=== PATIENT | male | born 1975 | race Asian ===

== ENCOUNTER 2016-12-09 14:33 | Observation (INO) | payer OTHER ==
--- NOTE | 2016-12-09 14:40 | CPEKG ---
Heart Rate: 68 RR Interval: 882 P-R Interval: 176 QRSD Interval: 96 QT Interval: 420 QTC Interval: 447 P [place]: 35 QRS [place]: -23 T Wave [place]: 7 EKG Severity - OTHERWISE NORMAL ECG - EKG Impression: SINUS RHYTHM EKG Impression: ATRIAL PREMATURE COMPLEX EKG Impression: BORDERLINE LEFT AXIS DEVIATION EKG Impression: Agree with above. Some artifact. Luke Hickman M.D. Electronically Signed By: Luke Hickman 10-Dec-2016 11:08:23
[2016-12-09] MEDS ORDERED: ASPIRIN 81 MG CHEWABLE TAB PO ONE (14:44)
[2016-12-09] MEDS ORDERED: NS 1,000 ML IV ONE (14:44)
--- NOTE | 2016-12-09 14:48 | EDPHY ---
H & P Time Seen by Provider: 12/09/16 14:36 HPI/ROS: CHIEF COMPLAINT: Palpitations HISTORY OF PRESENT ILLNESS: The patient is a 41-year-old man who comes to the emergency department complaining of palpitations last four hours. He is visiting from [place]. He states that he has had PVCs that he can feel most of his life and was told that there benign. He states that this feels different. He has having PACs for EMS and here on the monitor that do seem to correlate with his palpitations. He also complains of a warm sensation like he is going to fall asleep. He states that he was admitted the hospital in [place] in September of this year for similar symptoms and a bumped troponin. He had a cardiac catheterization that he reports was negative and he was ultimately diagnosed with myocarditis. He did not have fever at that time. He is unsure whether not he has worked up for PE. He denies leg pain or swelling. No nausea vomiting. No diaphoresis. History of high blood pressure. No high cholesterol. No smoking. No family history. He does feel slightly lightheaded when he stands up. REVIEW OF SYSTEMS: Constitutional: denies: chills, fever, recent illness, recent injury EENTM: denies: blurred vision, double vision, nose congestion Respiratory: denies: cough, shortness of breath Cardiac: See HPI Gastrointestinal/Abdominal: denies: abdominal pain, diarrhea, nausea, vomiting, blood streaked stools Genitourinary: denies: dysuria, frequency, hematuria, pain Musculoskeletal: denies: joint pain, muscle pain Skin: denies: lesions, rash, jaundice, bruising Neurological: denies: headache, numbness, paresthesia, tingling, dizziness, weakness Hematologic/Lymphatic: denies: blood clots, easy bleeding, easy bruising Immunologic/allergic: denies: HIV/AIDS, transplant EXAM: GENERAL: Well-appearing, well-nourished and in no acute distress. HEAD: Atraumatic, normocephalic. EYES: Pupils equal round and reactive to light, extraocular movements intact, sclera anicteric, conjunctiva are normal. ENT: TMs normal, nares patent, oropharynx clear without exudates. Moist mucous membranes. NECK: Normal range of motion, supple without lymphadenopathy or JVD. LUNGS: Breath sounds clear to auscultation bilaterally and equal. No wheezes rales or rhonchi. HEART: Regular rate and rhythm without murmurs, rubs or gallops. ABDOMEN: Soft, nontender, normoactive bowel sounds. No guarding, no rebound. No masses appreciated. BACK: No CVA tenderness, no spinal tenderness, step-offs or deformities EXTREMITIES: Normal range of motion, no pitting or edema. No clubbing or cyanosis. NEUROLOGICAL: Cranial nerves II through XII grossly intact. Normal speech, normal gait. 5/5 strength, normal movement in all extremities, normal sensation PSYCH: Normal mood, normal affect. SKIN: Warm, dry, normal turgor, no visible rashes or lesions. Source: Patient Exam Limitations: No limitations - Medical/Surgical History Hx Asthma: No Hx Chronic Respiratory Disease: No Hx Diabetes: No Hx Renal Disease: No Hx Cirrhosis: No Hx Alcoholism: No Hx HIV/AIDS: No Other PMH: Myocarditis - Family History Significant Family History: No pertinent family hx - Social History Smoking Status: Never smoked Alcohol Use: Sober Drug Use: None Constitutional: Initial Vital Signs Temperature (C) 37.1 C 12/09/16 14:40 Heart Rate 72 12/09/16 14:40 Respiratory Rate 18 12/09/16 14:40 Blood Pressure 172/116 H 12/09/16 14:40 O2 Sat (%) 98 12/09/16 14:40 O2 Delivery Mode Room Air Allergies/Adverse Reactions: No Known Allergies Allergy (Unverified 12/09/16 14:45) Home Medications: Medication Instructions Recorded Codeine Cough Syrup 5 - 10 ml PO Q6 PRN 12/09/16 Multivitamins [Multivitamin (*)] 1 each PO HS 12/09/16 [place]-3 Fatty Acids/Fish Oil 2 each PO HS 12/09/16 [[place] 3 1,000 mg Softgel] Perindopril Erbumine 4 mg PO DAILY 12/09/16 Medical Decision Making - Diagnostics EKG Interpretation: An EKG obtained and was read and documented in trace view. Please see trace view for full reading and report. Sinus rhythm, Pac, no acute ischemic changes Imaging Results: Imaging Impressions Chest X-Ray 12/09/16 14:44 Impression: Possible cardiomegaly. Recommend routine PA and lateral chest when the patient is clinically able, to better evaluate the cardiothoracic equilibrium. ED Course/Re-evaluation: Patient received echocardiogram in the ER considering his history of myocarditis and elevated troponins. It was read as negative by Dr. Malagon. 3:30 p.m. we discussed the test results and I recommended admission. I discussed the case with Dr. Heart who will admit. I have paged Cardiology. 4 p.m. I discussed the case with Cardiology Dr. Marquez who will consult. Differential Diagnosis: Partial list of the Differential diagnosis considered include but were not limited to; the acute coronary disease, myocarditis, PE and although unlikely based on the history and physical exam, I also considered dissection, pneumonia , aneurysm, takotsubos. - Data Points Laboratory Results: Laboratory Results 12/09/16 14:35 12/09/16 14:35 12/09/16 12/09/16 12/09/16 14:35 14:35 14:35 WBC 8.45 10^3/uL 10^3/uL (3.80-9.50) RBC 5.24 10^6/uL 10^6/uL (4.40-6.38) Hgb 15.9 g/dL g/dL (13.7-17.5) Hct 43.7 % % (40.0-51.0) MCV 83.4 fL fL (81.5-99.8) MCH 30.3 pg pg (27.9-34.1) MCHC 36.4 g/dL g/dL (32.4-36.7) RDW 13.6 % % (11.5-15.2) Plt Count 245 10^3/uL 10^3/uL (150-400) MPV 9.8 fL fL (8.7-11.7) Neut % (Auto) 69.2 % % (39.3-74.2) Lymph % (Auto) 22.4 % % (15.0-45.0) [place] % (Auto) 6.5 % % (4.5-13.0) Eos % (Auto) 1.1 % % (0.6-7.6) Baso % (Auto) 0.4 % % (0.3-1.7) Nucleat RBC Rel Count 0.0 % % (0.0-0.2) Absolute Neuts (auto) 5.86 10^3/uL 10^3/uL (1.70-6.50) Absolute Lymphs (auto) 1.89 10^3/uL 10^3/uL (1.00-3.00) Absolute Monos (auto) 0.55 10^3/uL 10^3/uL (0.30-0.80) Absolute Eos (auto) 0.09 10^3/uL 10^3/uL (0.03-0.40) Absolute Basos (auto) 0.03 10^3/uL 10^3/uL (0.02-0.10) Absolute Nucleated RBC 0.00 10^3/uL 10^3/uL (0-0.01) Immature Gran % 0.4 % % (0.0-1.1) Immature Gran # 0.03 10^3/uL 10^3/uL (0.00-0.10) PT 12.0 SEC SEC (12.0-15.0) INR 0.90 (0.83-1.16) APTT 30.2 SEC SEC (23.0-38.0) D-Dimer 0.27 ug/mLFEU ug/mLFEU (0.00-0.50) Sodium 140 mEq/L mEq/L (134-144) Potassium 4.0 mEq/L mEq/L (3.5-5.2) Chloride 102 mEq/L mEq/L (97-110) Carbon Dioxide 24 mEq/l mEq/l (22-31) Anion Gap 14 mEq/L mEq/L (8-16) BUN 12 mg/dL mg/dL (7-23) Creatinine 1.0 mg/dL mg/dL (0.7-1.3) Estimated GFR > 60 Glucose 98 mg/dL mg/dL (70-100) Calcium 9.8 mg/dL mg/dL (8.5-10.4) Total Bilirubin 0.5 mg/dL mg/dL (0.1-1.4) Conjugated Bilirubin 0.2 mg/dL mg/dL (0.0-0.5) Unconjugated Bilirubin 0.3 mg/dL mg/dL (0.0-1.1) AST 65 IU/L H IU/L (17-59) ALT 104 IU/L H IU/L (21-72) Alkaline Phosphatase 93 IU/L IU/L (38-126) Troponin I 0.055 ng/mL H ng/mL (0.000-0.034) Total Protein 7.4 g/dL g/dL (6.3-8.2) Albumin 4.6 g/dL g/dL (3.5-5.0) Lipase 53 IU/L IU/L (23-300) Medications Given: Discontinued Medications Aspirin (Aspirin) 324 mg PO EDNOW ONE Stop: 12/09/16 14:45 Last Admin: 12/09/16 14:59 Dose: 324 mg Sodium Chloride (Ns) 1,000 mls @ 0 mls/hr IV EDNOW ONE; Wide Open PRN Reason: Protocol Stop: 12/09/16 14:45 Last Admin: 12/09/16 14:59 Dose: 1,000 mls Metoprolol Tartrate (Lopressor Injection) 5 mg IVP Q5M [facility] Stop: 12/09/16 15:56 Last Admin: 12/09/16 15:51 Dose: 5 mg Departure - Departure Disposition: [facility] Inpatient Acute Clinical Impression: Chest pain Qualifiers: Chest pain type: unspecified Qualified Code(s): R07.9 - Chest pain, unspecified Condition: Fair
[2016-12-09 14:54] LABS: % IMMATURE GRANULYOCYTES 0.4 % (0.0-1.1); ABSOLUTE IMMATURE GRANULOCYTES 0.03 10^3/uL (0.00-0.10); ADD DIFF? NO; ADD MORPH? NO; ADD SCAN? NO; ATYPICAL LYMPHOCYTE FLAG 0 (0-99); FRAGMENT RBC FLAG 0 (0-99); HEMATOCRIT 43.7 % (40.0-51.0); HEMOGLOBIN 15.9 g/dL (13.7-17.5); LEFT SHIFT FLG 0 (0-99); LIPEMIA HEMOLYSIS FLAG 90 (0-99); MEAN CELL HEMOGLOBIN 30.3 pg (27.9-34.1); MEAN CELL HEMOGLOBIN CONCENTR. 36.4 g/dL (32.4-36.7); MEAN CELL VOLUME 83.4 fL (81.5-99.8); MEAN PLATELET VOLUME 9.8 fL (8.7-11.7); PLATELET CLUMPS FLAG 0 (0-99); PLATELET COUNT 245 10^3/uL (150-400); RED BLOOD CELL COUNT 5.24 10^6/uL (4.40-6.38); RED CELL DISTRIBUTION WIDTH 13.6 % (11.5-15.2)
[2016-12-09 15:02] LABS: ALANINE AMINOTRANSFERASE 104 IU/L (21-72); ALBUMIN 4.6 g/dL (3.5-5.0); ALKALINE PHOSPHATASE 93 IU/L (38-126); ANION GAP 14 mEq/L (8-16); APTT 30.2 SEC (23.0-38.0); ASPARTATE AMINOTRANSFERASE 65 IU/L (17-59); BILIRUBIN,TOTAL 0.5 mg/dL (0.1-1.4); BILIRUBIN-CONJUGATED 0.2 mg/dL (0.0-0.5); BILIRUBIN-UNCONJUGATED 0.3 mg/dL (0.0-1.1); CALCIUM 9.8 mg/dL (8.5-10.4); CARBON DIOXIDE 24 mEq/l (22-31); CHLORIDE 102 mEq/L (97-110); GLOMERULAR FILTRATION RATE > 60; GLUCOSE 98 mg/dL (70-100); INR 0.9 (0.83-1.16); SODIUM 140 mEq/L (134-144); TOTAL PROTEIN 7.4 g/dL (6.3-8.2)
[2016-12-09 15:14] LABS: TROPONIN I 0.055 ng/mL (0.000-0.034)
[2016-12-09] MEDS: METOPROLOL TARTRATE 5 MG/5 ML INJ IVP SCH ×2 (15:51→17:21)
--- NOTE | 2016-12-09 17:10 | ECHO ---
[email or web address] [address] Main: [phone] Fax: [email or web address] Echocardiogram Name: PAULINE WILKINS MR#: [id number] Study Date: 12/09/2016 Study Time: 03:06 PM Date of : 1975 Age: 41 year(s) Height: 170.2 cm (67 in.) Weight: 92.99 kg (205 lb.) BSA: 2.04 m2 Gender: Male Examination: Echo Indication: Chest Pain, History of myocarditis Image Quality: Contrast: Requested by: Floyd Davis BP: 167 mmHg/95 mmHg Heart Rate: Rhythm: Indication: Chest Pain, History of myocarditis Procedure Staff Manager Massage Department: Veronika Agosto Physician: Ehsan Marquez Requesting Provider: Conclusions: Normal size left ventricle. EF is 67 %. No regional wall motion abnormality. Normal diastolic LV function. Trivial mitral valve regurgitation. Trivial aortic valve regurgitation. Trivial tricuspid valve regurgitation. Measurements: Chambers Valvular Assessment AV/MV Valvular Assessment TV/PV Normal Normal Normal Name Value Range Name Value Range Name Value Range Ao Radha (MM): 3.7 cm (2.2 cm-3.7 AV Vmax: 1.23 m/s (1 m/s-1.7 TR Vmax: 2.36 mm/s ( - ) cm) m/s) TR PGmax: 22 mmHg ( - ) IVSd (2D): 1.2 cm (0.6 cm-1.1 AV maxP mmHg ( - ) syst. PAP: 27 mmHg ( - ) cm) AV meanP mmHg ( - ) LVDd (2D): 5.2 cm (4.2 cm-5.9 MV E Vmax: 0.74 m/s ( - ) cm) MV A Vmax: 0.58 m/s ( - ) LVDs (2D): 3.4 cm (2.1 cm-4 MV E/A: 1.28 ( - ) cm) LVPWd (2D): 0.9 cm (0.6 cm-1 cm) LVEF (MOD4): 67 % (>=55 %) Continued Measurements: Chambers Valvular Assessment AV/MV Valvular Assessment TV/PV Name Value Name Value Name Value LADs: 4.3 cm MV E/E' Septal: 10.50 CVP (est.): 5 mmHg LADs Lon.9 cm MV E/E' Lateral: 5.60 Patient: PAULINE WILKINS Study Date: 12/09/2016 Page 1 of 2 03:06 PM LA Area: 23.9 cm2 Findings: Left Ventricle: Normal size left ventricle. No LV hypertrophy. Normal global systolic LV function. EF is 67 %. No regional wall motion abnormality. Normal diastolic LV function. Right Ventricle: Normal size right ventricle. Left Atrium: The left atirum is borderline dilated. Right Atrium: The right atrium is normal in size. Mitral Valve: The mitral valve is normal in appearance. Trivial mitral valve regurgitation. Aortic Valve: The aortic valve is normal in appearance and function. Trivial aortic valve regurgitation. Tricuspid Valve: The tricuspid valve is normal in appearance and function. Trivial tricuspid valve regurgitation. Pulmonic Valve: The pulmonic valve is normal in appearance and function. Trivial pulmonic valve regurgitation. Aorta: The aorta is normal. Pericardium: No pericardial effusion. (No Signature Object) Patient: PAULINE WILKINS Study Date: 12/09/2016 Page 2 of 2 03:06 PM [id number]
[2016-12-09] MEDS ORDERED: ONDANSETRON DISINTEGRATING 4 MG TAB PO PRN (18:32)
[2016-12-09] MEDS ORDERED: ONDANSETRON 4 MG/2 ML VIAL IVP PRN (18:32)
[2016-12-09] MEDS ORDERED: ACETAMINOPHEN 325 MG TAB PO PRN (18:32)
[2016-12-09 18:51] LABS: HEMATOCRIT 42.1 % (40.0-51.0)
[2016-12-09] MEDS ORDERED: guaiFENesin/CODEINE PHOS 10 ML UDCUP PO PRN (19:00)
[2016-12-09 19:08] LABS: C-REACTIVE PROTEIN < 5.0 mg/L (<10.0)
[2016-12-09 19:17] LABS: TROPONIN I 0.059 ng/mL (0.000-0.034)
[2016-12-09] MEDS ORDERED: MULTIVITAMINS 1 EACH TAB PO SCH (21:00)
[2016-12-09] MEDS ORDERED: OMEGA-3 FATTY ACIDS 1,000 MG CAP PO SCH (21:00)
--- NOTE | 2016-12-09 21:40 | GHP ---
[f rep st] HISTORY AND PHYSICAL DATE OF ADMISSION: 12/09/2016 This patient is a 41-year-old gentleman with minimal past medical history, other than palpitations, w alex presented with presyncope from [facility]. He has been in the [place] for a couple of weeks traveling. He works for [employer], and he had lunch with colleagues today. He had a light lunch, an d during that, he began to feel presyncopal and warm and flushed. He felt sleepy. He began to walk to his car, and he stumbled. He was also having frequent palpitations a couple of times a minute. U ltimately, he decided to seek care. He did not have chest pain or angina. He has a history of having previous palpitations, and was seen in the hospital in [place], where he h ad a troponin of 1.5. He underwent angiogram and a number of other tests, all of which were reported ly normal. He does not have exertional symptoms. 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 He is able to do a lo t of hiking here in [place] and [place] without anginal symptoms. He does not use stimulant drugs, ashley e cocaine, drink excessive caffeine, smoke cigarettes, or drink any more than minimal alcohol. He do es not take stimulant drugs. He had an uncle who of a heart attack, but otherwise no previous. He had a cold in October, and has a persistent cough, although following that September admission to [facility], he was also started on an DARRELL inhibitor. He has not had fever, chills, or jaundice. He does not take any supplements, and takes very few medications, other than an DARRELL inhibitor. In the emergency department, he was found to have an indeterminate troponin and palpitations that wer e relieved with on administration of IV metoprolol. He denies a history of tachyarrhythmias or fast palpitations. He did not have other episodes of sync ope. No fever, chills. REVIEW OF SYSTEMS: Complete 10-point review of systems conducted. Negative, except as noted in the HPI. PAST MEDICAL HISTORY: 1. Palpitations. 2. Positive troponin, diagnosed as myocarditis, as detailed in the HPI. 3. Hypertension. ALLERGIES: No known drug allergies. HOME MEDICATIONS: Codeine cough syrup, multivitamin, fish oil, and perindopril, which is an DARRELL inhi bitor. SOCIAL HISTORY: As in the HPI. FAMILY HISTORY: As in the HPI. PHYSICAL EXAMINATION: PRESENTING VITAL SIGNS: Temp 37.1, blood pressure 172/116, now 151/88, pulse in the 70s, breathing 18 times a minute, 98% on room air. GENERAL: No acute distress. HEENT: Scle paresh anicteric. Oropharynx clear. Mucous membranes are moist. NECK: Supple without lymphadenopathy or JVD. LUNGS: Clear to auscultation bilaterally. HEART: S1, S2. ABDOMEN: Soft, nontender, non distended. LOWER EXTREMITIES: Without edema. Calves are nontender. SKIN: Without rash. NEUROLOG IC: Exam is nonfocal. LABORATORY: Sodium 140, potassium 4.0, chloride 102, bicarb 24, BUN 12, creatinine 1.0, glucose 98. LFTs: Bilirubin is normal. AST is 65, ALT is 104, alk phosphatase is 93, troponin is 0.055. A rep eat troponin is 0.059. CRP is undetectable. BNP is 86. Albumin and lipase are normal. D-dimer is normal. Coags normal. Hepatitis serologies are pending. White count 8, hematocrit 43, platelets ar e 245,000. EKG, interpreted by me, shows sinus at 68 with normal axis and intervals. No ST or T-wave changes. There is no injury pattern. Echocardiogram shows normal LV size and function. Normal right-sided pressures. Normal valves. Ess entially an unremarkable echo. I discussed the case with Dr. Floyd Davis. ASSESSMENT AND PLAN: A 41-year-old gentleman presents with palpitations, presyncope, and indetermina te troponin. 1. Presyncope. This sounds an awfully lot like vagal. There is no clear trigger, as he had a light lunch, he did not describe it as a stressful affair, but certainly it sounds like a vagal with a war m feeling and a flush and some sleepiness, and a long interval between feeling like he was going to p ass out and the onset of symptoms. We will follow on telemetry. He has a normal echo. 2. Indeterminate troponin. The cause of this is uncertain. The patient has a normal echo. He does not have an injury pattern. It is possibly a viral syndrome; although he does not have viral sympto ms at this time, he had them recently. Will follow. Cardiology will see him in the morning. It is worth noting that they are flat; there is another coming in the morning. 3. Palpitations. I suspect these are just premature ventricular contractions. In the ER, they note d his symptoms of premature ventricular contractions corresponded with the monitor that resolved with the beta laura. The patient may be a candidate for outpatient beta laura therapy. I have held them at night in case the patient is having a tachyarrhythmia we are not seeing, in which case would be nice to unmask that. 4. A cough. I suspect he may have a cough secondary to angiotensin converting enzyme inhibitor. It may be worth stopping this and see what happens. It is notable that the patient typically has a cou gh for weeks following a viral syndrome, and did have something about a month ago. 5. Disposition: Observation status. 6. Prophylaxis: Low-risk sequential compression devices and ambulation. /[id number]/MODL
[2016-12-10] MEDS ORDERED: PERINDOPRIL ERBUMINE 4 MG PO SCH (09:00)
--- NOTE | 2016-12-10 12:47 | HOSPPROG ---
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 w/u reveals indeterminate troponin (0.059 - 0.07), EKG unremarkable, telemetry unremarkable, TTE unremarkable, no chest pain or SOB. Cards consult pending. He has a hx of being admitted to a hospital in [place] w/i the last year for abd pain. A troponin was above 1 and he had a Cath performed which was unremarkable. Since then, he has had a normal troponin at recheck. Yesterday his near syncopal episode occurred shortly after hearing some stressful news that his grand mother has been made DNR. History appears to indicated likely vasovagal. Since his hospitalization in [place], he has been started on on DARRELL-I and has developed a cough. This was stopped yesterday. He has also lost about 25 lbs and this has been voluntary as he has been exercising and dieting. #Near syncope #Indeterminate troponin #cough, possible due to DARRELL-I #HTN, not hypertensive here. #palpitations, none currently Plan: -Cards consult -Hold DARRELL-I, likely does not need given loss of weight, and current BP ok -SCD's -Full code Subjective: Feels back to baseline. NO CP or SOB. Troponin continues to be at inteterminate range. Objective: Vital Signs Temp Pulse Resp BP Pulse Ox 36.4 C 58 L 19 127/83 H 97 12/10/16 08:38 12/10/16 08:38 12/10/16 08:38 12/10/16 08:38 12/10/16 08:38 Laboratory Results 12/09/16 18:40 12/09/16 12/10/16 12/11/16 05:59 05:59 05:59 Intake Total 1500 Balance 1500 PT 12.0 SEC (12.0-15.0) 12/09/16 14:35 INR 0.90 (0.83-1.16) 12/09/16 14:35 - Physical Exam Constitutional: no apparent distress Eyes: PERRL, EOMI Ears, Nose, Mouth, Throat: moist mucous membranes, hearing normal Cardiovascular: regular rate and rhythym Respiratory: no respiratory distress, no rales or rhonchi, clear to auscultation Gastrointestinal: normoactive bowel sounds, soft, non-tender abdomen Skin: warm Neurologic: AAOx3 Psychiatric: interacting appropriately, not anxious, not encephalopathic ICD10 Worksheet Patient Problems: Problems Problem Status Onset Chest pain Acute
[2016-12-10 12:51] VITALS: BP 141/73; PULSE 68; RESP 16; TEMP 98.1; O2SAT 94
--- NOTE | 2016-12-10 15:14 | PDCARCONS ---
Cardiology Consult Reason for Consult: palpitations Chief Complaint: palpitations and near syncope Requesting Physician: ER/Hospitalist crew History of Present Illness: Patient is a 41 y/o male with relatively unremarkable past medical/ cardiovascular history (no CAD, HTN, HLP, or DM), who presented to [facility] ER via EMS after an episode of palpitations with associated with near syncope. No complaints of chest pains, but mild chest pressure/tightness was noted. No erasmo dizziness was noted, but the patient felt like he was going to faint. No PND or orthopnea. Recent eleven mile hike without any limitations appreciated. There has been a moderate degree of stress - there was a stressful phone call just prior to the events that were noted (and led to the EMS call), and there is also some degree of stress associated with the current job/work. The latter did not appear to be a great deal of stress over and above "normal" for the patient. Ongoing very good PO intake of fluids. In speaking with the patient, there was an event that occurred back at home in [place] with a full cardiovascular work up (echo and angiography sound like they were performed based on the patient's descriptions and awareness of the work up performed). No erasmo pathology was noted with this work up. Peak troponin with the admission ([place] admission) were about 1.5 ng/mL. Mild troponin elevation was also noted with this admission (peak to 0.077 ng/mL, with ongoing subtle elevation noted). Patient reports that he is feeling very well today. was present with the patient in the room today. One complaints that was voiced by both patient and is a dry, non productive cough, that has been noted since ACEi therapy was started at the time of discharge from [facility]. History Information - Allergies/Home Medication List Allergies/Adverse Reactions: No Known Allergies Allergy (Unverified 12/09/16 14:45) Home Medications: Codeine Cough Syrup 5 - 10 ml PO Q6 PRN 12/09/16 [Last Taken 12/08/16 20:00] Multivitamins [Multivitamin (*)] 1 each PO HS 12/09/16 [Last Taken 12/08/16 22: 00] Rutledge-3 Fatty Acids/Fish Oil [Rutledge 3 1,000 mg Softgel] 2 each PO HS 12/09/16 [ Last Taken 12/08/16 22:00] Perindopril Erbumine 4 mg PO DAILY 12/09/16 [Last Taken 12/09/16 08:00] I have personally reviewed and updated: family history, medical history, social history, surgical history Past Medical History: - Past Medical History no pertinent PMH, hypertension - Surgical History Reports: no pertinent surgical hx - Family History Positive for: non-pertinent - Social History Smoking Status: Never smoked Alcohol Use: Sober Drug Use: None Cardiac History - Cardiac History Cardiac Risk Factors: hypertension (>140/90), male Timing/Duration: Weeks Severity: moderate Severity Scale: 5 Activities at Onset: activity Modifying Factors: improves with: lying down, rest Associated Symptoms: syncope, weakness Physical Exam Physical Exam: Temp Pulse Resp BP Pulse Ox 36.7 C 68 16 141/73 H 94 12/10/16 12:48 12/10/16 12:48 12/10/16 12:48 12/10/16 12:48 12/10/16 12:48 O2 (L/minute) 2 Constitutional: no apparent distress, appears nourished, not in pain Eyes: PERRL Ears, Nose, Mouth, Throat: moist mucous membranes, hearing normal, ears appear normal Cardiovascular: regular rate and rhythym, no murmur, rub, or gallop, No JVD Peripheral Pulses: 2+: dorsalis-pedis (R), dorsalis-pedis (L) Respiratory: no respiratory distress, no rales or rhonchi, clear to auscultation Gastrointestinal: normoactive bowel sounds, soft, non-tender abdomen Skin: warm, normal color, no rashes or abrasions Musculoskeletal: full muscle strength Neurologic: AAOx3, sensation intact bilaterally, CN II-XII Intact Psychiatric: interacting appropriately, not anxious, not encephalopathic Lab and Imaging 12/09/16 18:40 12/09/16 14:35 WBC 8.45 10^3/uL (3.80-9.50) 12/09/16 14:35 RBC 5.24 10^6/uL (4.40-6.38) 12/09/16 14:35 Hgb 15.9 g/dL (13.7-17.5) 12/09/16 14:35 Hct 42.1 % (40.0-51.0) 12/09/16 18:40 MCV 83.4 fL (81.5-99.8) 12/09/16 14:35 MCH 30.3 pg (27.9-34.1) 12/09/16 14:35 MCHC 36.4 g/dL (32.4-36.7) 12/09/16 14:35 RDW 13.6 % (11.5-15.2) 12/09/16 14:35 Plt Count 245 10^3/uL (150-400) 12/09/16 14:35 MPV 9.8 fL (8.7-11.7) 12/09/16 14:35 Neut % (Auto) 69.2 % (39.3-74.2) 12/09/16 14:35 Lymph % (Auto) 22.4 % (15.0-45.0) 12/09/16 14:35 Mckenzie % (Auto) 6.5 % (4.5-13.0) 12/09/16 14:35 Eos % (Auto) 1.1 % (0.6-7.6) 12/09/16 14:35 Baso % (Auto) 0.4 % (0.3-1.7) 12/09/16 14:35 Nucleat RBC Rel Count 0.0 % (0.0-0.2) 12/09/16 14:35 Absolute Neuts (auto) 5.86 10^3/uL (1.70-6.50) 12/09/16 14:35 Absolute Lymphs (auto) 1.89 10^3/uL (1.00-3.00) 12/09/16 14:35 Absolute Monos (auto) 0.55 10^3/uL (0.30-0.80) 12/09/16 14:35 Absolute Eos (auto) 0.09 10^3/uL (0.03-0.40) 12/09/16 14:35 Absolute Basos (auto) 0.03 10^3/uL (0.02-0.10) 12/09/16 14:35 Absolute Nucleated RBC 0.00 10^3/uL (0-0.01) 12/09/16 14:35 Immature Gran % 0.4 % (0.0-1.1) 12/09/16 14:35 Immature Gran # 0.03 10^3/uL (0.00-0.10) 12/09/16 14:35 ESR 7 MM/HR (0-15) 12/09/16 18:40 PT 12.0 SEC (12.0-15.0) 12/09/16 14:35 INR 0.90 (0.83-1.16) 12/09/16 14:35 APTT 30.2 SEC (23.0-38.0) 12/09/16 14:35 D-Dimer 0.27 ug/mLFEU (0.00-0.50) 12/09/16 14:35 Sodium 140 mEq/L (134-144) 12/09/16 14:35 Potassium 4.0 mEq/L (3.5-5.2) 12/09/16 14:35 Chloride 102 mEq/L (97-110) 12/09/16 14:35 Carbon Dioxide 24 mEq/l (22-31) 12/09/16 14:35 Anion Gap 14 mEq/L (8-16) 12/09/16 14:35 BUN 12 mg/dL (7-23) 12/09/16 14:35 Creatinine 1.0 mg/dL (0.7-1.3) 12/09/16 14:35 Estimated GFR > 60 12/09/16 14:35 Glucose 98 mg/dL (70-100) 12/09/16 14:35 Calcium 9.8 mg/dL (8.5-10.4) 12/09/16 14:35 Total Bilirubin 0.5 mg/dL (0.1-1.4) 12/09/16 14:35 Conjugated Bilirubin 0.2 mg/dL (0.0-0.5) 12/09/16 14:35 Unconjugated Bilirubin 0.3 mg/dL (0.0-1.1) 12/09/16 14:35 AST 65 IU/L (17-59) H 12/09/16 14:35 ALT 104 IU/L (21-72) H 12/09/16 14:35 Alkaline Phosphatase 93 IU/L (38-126) 12/09/16 14:35 Troponin I 0.077 ng/mL (0.000-0.034) H 12/10/16 11:15 C-Reactive Protein < 5.0 mg/L (<10.0) 12/09/16 18:40 NT-Pro-B Natriuret Pep 86 pg/mL (0-125) 12/09/16 18:40 Total Protein 7.4 g/dL (6.3-8.2) 12/09/16 14:35 Albumin 4.6 g/dL (3.5-5.0) 12/09/16 14:35 Lipase 53 IU/L (23-300) 12/09/16 14:35 Hepatitis A IgM Ab NEGATIVE (NEGATIVE) 12/09/16 14:35 Hep Bs Antigen NEGATIVE (NEGATIVE) 12/09/16 14:35 Hep B Core IgM Ab NEGATIVE (NEGATIVE) 12/09/16 14:35 Hepatitis C Antibody NEGATIVE (NEGATIVE) 12/09/16 14:35 Visualized and Interpreted Chest x-ray results: Yes Chest X-ray Interpretation: no infiltrate, normal Visualized and Interpreted EKG results: Yes EKG Interpretation: Positive for: normal sinsus rhythm Telemetry: normal sinus rhythm Echocardiogram: normal wall motion with normal left ventricular systolic ejection fraction (67%) . No valve pathology was appreciated. A/P Assessment: Patient is a 41 y/o male with diagnosis of "myocarditis" in [place] several months ago (echocardiogram, angiogram, and telemetry monitoring) who presented to [facility] via EMS after palpitations and near syncope were noted. Stress with work is noted (but seemingly no more than typical for the patient). There was also a stressful phone call from home just prior to the event. Dry coughing has been noted since ACEi addition post Nepalese hospitalization. Improvement in symptoms (palpitations in particular) have been noted since the addition of beta blockers. Today, the patient reports that he is feeling much better. Caution about need for more aggressive hydration in [place] (dry and elevation ) than compared to [place] ([place]). Query if there is some relation with the stressors noted and vasospasm for the very small degree of cardiac biomarker leak that has been noted. Plan: (1) Discontinue ACEi use (2) Begin low dose Metoprolol tartrate (25 mg twice per day) - risks and benefits were discussed (3) Would recommend a exterminator termite rhythm assessment (CardioNet or implantable LINQ recorder) to determine the etiology of the palpitations that have been noted (4) Regular and routine exercise (5) Continued dietary changes for further weight loss (6) Ongoing PO hydration (7) Would arrange for follow up with cardiology when at home - plans for the patient to travel home in three days (8) Consideration of ETT to determine if there arrhythmias (little concern for ischaemia with recent angiography) that might precipitate some of the symptoms that have been noted. (9) Annual assessment of cholesterol and LFTs
[2016-12-10] MEDS ORDERED: ASPIRIN 81 MG CHEWABLE TAB PO ONE (16:14)
[2016-12-10] MEDS ORDERED: METOPROLOL TARTRATE 25 MG TAB PO SCH (16:15)
--- NOTE | 2016-12-10 16:19 | PDDCSUM ---
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 w/u reveals indeterminate troponin (0.059 - 0.07), EKG unremarkable, telemetry unremarkable, TTE unremarkable, no chest pain or SOB. He has a hx of being admitted to a hospital in [place] w/i the last year for abd pain. A troponin was above 1 and he had a Cath performed which was unremarkable. He was diagnosed with Myocarditis. Since then, he has had a normal troponin at recheck. Yesterday his near syncopal episode occurred shortly after hearing some stressful news that his grand mother has been made DNR. History appears to indicated likely vasovagal. Since his hospitalization in [place], he has been started on on DARRELL-I and has developed a cough. This was stopped yesterday. He has also lost about 25 lbs and this has been voluntary as he has been exercising and dieting. He was evaluated by Cardiology who have started Metoprolol 25 mg PO BID, aspirin 81 mg daily. He needs f/u with PCP and Cards upon return to [place] [facility] assessment Consider ETT cont weight loss cont exercise stop DARRELL-I #Near syncope #Indeterminate troponin #cough, possible due to DARRELL-I #HTN, not hypertensive here. #palpitations, none currently Exam: per progress note today meds: see med rec f/u: per above total care time spent on discharge is 35 minutes
== END 2016-12-10 17:10 | disposition home or self-care (01) ==
LOC: F2W 16:30
PROVIDERS: ADMIT Internal Medicine; ATTEND Internal Medicine
DX: R55 Syncope and collapse (principal); R00.2 Palpitations; R07.89 Other chest pain; R79.89 Other specified abnormal findings of blood chemistry; I10 Essential (primary) hypertension; R05 Cough
CPT/HCPCS: 71010; 93005; 93306; G0378; G0472